=== PATIENT | male | born 1965 | race Caucasian/White ===

== ENCOUNTER 2022-02-23 16:20 | Emergency (ER) | payer OTHER ==
[~2022-02-23] VITALS: Ht 182.9 cm; Wt 99.8 kg
[2022-02-23 16:28] VITALS: BP 132/89
[2022-02-23] MEDS ORDERED: NACL 0.9% 1,000 ML IV ONE (16:40)
[2022-02-23 16:59] LABS: BASOPHILS % (AUTO) 0.5 % (0.0-2.0); EOSINOPHILS % (AUTO) 0.4 % (0.0-4.0); HEMATOCRIT 38.1 % (36-52); HEMOGLOBIN 12.8 g/dL (12.0-18.0); LYMPHOCYTES # (AUTO) 1.7 K/uL (2.0-11.5); LYMPHOCYTES % (AUTO) 32.3 % (20.5-51.1); MEAN CORPUSCULAR HEMOGLOBIN 30 pg (27-31); MEAN CORPUSCULAR HGB CONC 34 g/dL (33-37); MEAN CORPUSCULAR VOLUME 89.2 fL (80-94); MONOCYTES # (AUTO) 0.4 K/uL (0.8-1.0); MONOCYTES % (AUTO) 7.5 % (1.7-9.3); NEUTROPHILS # (AUTO) 3.1 K/uL (1.8-7.7); NEUTROPHILS % (AUTO) 59.3 % (42.2-75.2); PLATELET COUNT (AUTO) 267 K/uL (140-450); RED BLOOD CELL COUNT(AUTO) 4.27 MIL/uL (4.20-6.10); RED CELL DISTRIBUTION WIDTH 12.9 % (11.6-13.7); WHITE BLOOD COUNT (AUTO) 5.2 K/uL (4.8-10.8)
[2022-02-23 17:20] LABS: ALBUMIN 3.6 g/dL (3.4-5.0); ANION GAP 9.3 (8-16); ASPARTATE AMINOTRANSFERASE 15 U/L (15-37); CARBON DIOXIDE 24.7 mmol/L (21-32); CHLORIDE 106 mmol/L (98-107); GFR ARICAN-AMERICAN 100 mL/min (>90); GLUCOSE 137 mg/dL (74-106); SODIUM SERUM 137 mmol/L (136-145); TOTAL BILIRUBIN 0.3 mg/dL (0.0-1.0); UREA NITROGEN, BLOOD 16 mg/dL (7-18)
--- NOTE | 2022-02-23 17:20 | NUR ---
56 Y/O MALE BIBA FROM WORK, PATIENT PRESENTS TO ED WITH NEW ONSET OF ALOC, PT WAS FOUND CONFUSED AND HARD TO AROUSE. PER [facility], PT WAS FOUND IN VERY HOT ROOM, APPEARED VERY LETHARGIC. PT UNABLE TO SPEAK AT THIS TIME; SKIN IS PALE/WARM/CLAMMY; AAOX0, UNABLE TO AMBULATE, WEAK UPPER AND LOWER EXTREMITIES; LUNGS CLEAR BL; HR EVEN AND REGULAR; GLUCOSE: 191 UPON ARRIVAL. PT ARRIVED WITH 16G ON RIGHT HAND WAS GIVEN 1000ML BOLUS EN ROUTE. PATIENT POSITIONED FOR COMFORT; HOB ELEVATED; BEDRAILS UP X2; BED DOWN. ER MD MADE AWARE OF PT STATUS. PMH: DENIES PER [facility]: DENIES PER
--- NOTE | 2022-02-23 17:25 | NUR ---
smita swabbed and sent to lab at this time
--- NOTE | 2022-02-23 17:26 | NUR ---
pt taken to ct via flex at this time
[2022-02-23 18:38] LABS: APPEARANCE,URINE CLEAR (CLEAR); BILIRUBIN,URINE NEGATIVE (NEGATIVE); BLOOD, URINE NEGATIVE (NEGATIVE); COLOR,URINE YELLOW (YELLOW); LEUKOCYTE ESTERASE ,URINE NEGATIVE (NEGATIVE); NITRITE, URINE NEGATIVE (NEGATIVE); UGLUCOSE NEGATIVE (NEGATIVE)
[2022-02-23 19:08] LABS: BARBITURATE, URINE NEGATIVE ng/ml (NEG <=200); BENZODIAZEPINE, URINE NEGATIVE ng/mL (NEG <=200); CANNABINOID, URINE NEGATIVE ng/mL (NEG <=50); COCAINE, URINE NEGATIVE ng/mL (NEG <=300); OPIATE, URINE NEGATIVE ng/mL (NEG <=2000); PHENCYCLIDINE SCREEN,URINE NEGATIVE ng/mL (NEG <=25)
--- NOTE | 2022-02-23 19:20 | NUR ---
REPORT RECEIVED FROM PADILLA ORDAZ. CONTINUITY OF PT CARE AT THIS TIME.
--- NOTE | 2022-02-23 19:50 | NUR ---
Pt laying in bed locked in lowest position w x2 siderails up for pt safety. Pt AOX3, GCS 14. Pt reports last remembering he was sitting in his office. Pt reports some dizziness, denies any headache, chest pain, sob, pain or any other symptoms. CHERYLE Moscoso aware of pt status. pmh: denies allergies: denies
--- NOTE | 2022-02-23 20:11 | NUR ---
Patient to be transferred to [facility]. Is being transferred due to insurance request. Receiving facility has accepting physician and available space. ER physician has signed transfer form. Patient or responsible green party has agreed to transfer and signed form. Patient belongings inventoried and will be sent with patient. Copy of nursing notes, lab reports, EKG, Physicians Orders and X-rays to be sent with patient. Report called to bonnie at receiving facility. [facility] has been called for transfer. ETA is 2014.
[2022-02-23 20:36] VITALS: BP 143/96
--- NOTE | 2022-02-23 20:36 | NUR ---
[facility] TRANSFERING PT AT THIS TIME.
== END 2022-02-23 20:11 | disposition short-term general hospital (02) ==
LOC: MED 16:20
DX: T67.01XA Heatstroke and sunstroke, initial encounter (principal); R41.82 Altered mental status, unspecified; Z20.822 Contact with and (suspected) exposure to COVID-19; X58.XXXA Exposure to other specified factors, initial encounter; Y93.89 Activity, other specified; Y92.89 Other specified places as the place of occurrence of the external cause; Y99.8 Other external cause status
CPT/HCPCS: 36415; 70450; 80053; 80305; 81003; 82550; 84484; 85025; 87426; 93005; 96360; 96361; 99285; G0482; J7030